=== PATIENT | male | born 1945 | race Caucasian/White ===

== ENCOUNTER → 2016-12-03 | Outpatient (CLI) | payer OTHER ==
--- NOTE | 2016-12-06 13:37 | RADIOLOGY REPORT PS360 ---
CHEST(2 VIEWS-NOT PORTABLE) COMPARISON: None HISTORY: Suspected AV block on EKG TECHNIQUE: PA and lateral chest FINDINGS: The lung coffman are well expanded and appear clear of infiltrate. There is mild cardio megaly with aortic tortuosity however is no evidence of failure. There are small calcified hilar nodes bilaterally. Is mild degenerative change of the thoracic spine. IMPRESSION: Mild cardio megaly, no acute chest pathology noted
== END ==
LOC: LAB 10:15 → RAD 10:15
DX: M25.562 Pain in left knee (principal); Z01.810 Encounter for preprocedural cardiovascular examination; Z01.811 Encounter for preprocedural respiratory examination; Z01.812 Encounter for preprocedural laboratory examination